=== PATIENT | male | born 1980 | race African-American/Black ===

== ENCOUNTER 2019-02-01 15:39 | Emergency (ER) | payer SELFPAY ==
[~2019-02-01] VITALS: Ht 177.8 cm; Wt 65.9 kg
[2019-02-01 15:49] VITALS: BP 118/89; TEMP 98.2
[2019-02-01] MEDS ORDERED: PERCOCET 325 MG1 TA2 PO (17:36)
[2019-02-01 18:01] VITALS: PULSE 91
== END 2019-02-01 18:02 | disposition home or self-care (01) ==
LOC: COL.ER 15:39
DX: S62.91XA Unspecified fracture of right hand, initial encounter for closed fracture (principal); W23.0XXA Caught, crushed, jammed, or pinched between moving objects, initial encounter; Y92.009 Unspecified place in unspecified non-institutional (private) residence as the place of occurrence of the external cause
CPT/HCPCS: Q4021

== ENCOUNTER 2019-02-07 14:46 | Emergency (ER) | payer SELFPAY ==
[~2019-02-07] VITALS: Ht 180.3 cm; Wt 65.9 kg
[~2019-02-07 14:46] MED LIST: PERCOCET 325 MG1 TA2 PO
[2019-02-07 15:03] VITALS: BP 133/69; TEMP 97.7
[2019-02-07] MEDS ORDERED: PERCOCET 325 MG1 TA2 PO (16:03)
[2019-02-07 16:36] VITALS: PULSE 90
== END 2019-02-07 16:36 | disposition home or self-care (01) ==
LOC: COL.ER 14:46
DX: S62.141A Displaced fracture of body of hamate [unciform] bone, right wrist, initial encounter for closed fracture (principal); X58.XXXA Exposure to other specified factors, initial encounter
CPT/HCPCS: Q4045